=== PATIENT | male | born 1965 | race Caucasian/White ===

== ENCOUNTER 2018-09-09 09:17 | Day surgery (SDC) | payer OTHER ==
--- NOTE | 2018-09-09 07:41 | HP ---
DATE OF SURGERY: 09/09/2018 HISTORY OF PRESENT ILLNESS: A 53 year-old with no prior colonoscopy, no bloody stools, no change in bowel movements. Family history of bladder, prostate and rectal area cancer. He is in need of screening colonoscopy. PAST MEDICAL HISTORY: Hypertension. He has some aches and pains. PAST SURGICAL HISTORY: He denied any prior abdominal surgeries. MEDICATIONS: Gabapentin, Baclofen, hydrocodone, amlodipine, diclofenac, metoprolol, losartan. ALLERGIES: PENICILLIN. FAMILY HISTORY: Heart disease and cancer. SOCIAL HISTORY: No smoking or alcohol abuse. REVIEW OF SYSTEMS: Twelve systems reviewed. No chest pain or palpitations other systems negative or noncontributory as above and per preadmission questionnaire. PHYSICAL EXAMINATION: GENERAL: No acute distress. HEENT: Sclerae nonicteric. NECK: No JVD. CHEST: Clear to auscultation. CVS: Regular rate and rhythm. ABDOMEN: Soft. No peritoneal signs. EXTREMITIES: No significant edema. NEURO: Alert, oriented, moving extremities symmetrically. No gross motor deficits noted. IMPRESSION: No prior colonoscopy, history of some different types of cancer in the family. I feel he would benefit from screening colonoscopy. He was shown the risk sheet and explained the procedure detail but not limited to bleeding or infection, risk of bowel injury or perforation possibly requiring open procedure, risk of missed or nondiagnosis or incomplete exam possibly requiring barium enema, other studies or procedures, general risk of sedation or bowel prep, postoperative risk of nausea or cramping but not limited to. He understands and agrees to the planned procedure and will proceed with outpatient screening colonoscopy under MAC anesthesia.
[2018-09-09] MEDS ORDERED: DIPRIVAN 200 MG/20 ML IV ONE (09:18)
[2018-09-09] MEDS ORDERED: Ketamine HCl 50 MG/ML IV ONE (09:18)
[2018-09-09] MEDS ORDERED: Lactated Ringers 1,000 ML IV ONE ×2 (10:05→12:26)
[2018-09-09] MEDS ORDERED: Lactated Ringers 1,000 ML IV SCH (10:30)
[2018-09-09 14:07] VITALS: PULSE 58; O2SAT 100
[2018-09-09 14:08] VITALS: BP 151/73
--- NOTE | 2018-09-10 07:42 | OP ---
SURGERY DATE/TIME: 09/09/2018 1120 PREOPERATIVE DIAGNOSIS: Need for screening colonoscopy. POSTOPERATIVE DIAGNOSES: 1) Mild diverticulosis. 2) Small internal and external hemorrhoids. 3) Somewhat limited prep (fair amount of liquidy semi-solid stool limiting exam). Prep overall adequate but limited. PROCEDURES: 1) Colonoscopy to terminal ileum. 2) Retrograde ileoscopy. SURGEON: Dr. Catarino Calderon. ANESTHESIA: MAC, ESTIMATED BLOOD LOSS: Minimal. INDICATIONS: As noted above. Risks and benefits explained in detail but not limited to and consent obtained. DESCRIPTION OF PROCEDURE AND FINDINGS: The patient is taken to the operating room. MAC anesthesia introduced. After official time out and no disagreement with planned procedure, digital rectal exam did not reveal any rectal masses. He did have some small internal and external hemorrhoids. Video colonoscope carefully inserted. He had some liquidy semi-solid, a few solid chunks in the colon but the scope slowly and carefully navigated through the sigmoid, descending, transverse, ascending colon. With external pressure it was able to be passed around to the cecum. Appendiceal orifice well visualized. Pictures taken. The scope was able to be passed up the terminal ileum. Retrograde ileoscopy performed which was grossly unremarkable. The scope slowly carefully withdrawn. There were no signs of any large polyps, masses or obstructing lesions. The liquidy semi-solid stool irrigated and suctioned as well as possible just slightly limiting exam for small lesions. I do not feel there is any large lesions that were missed at this part of the prep but potential for very small lesions may not be easily seen given his prep quality. The scope slowly and carefully withdrawn. He had some mild diverticulosis in the left colon, had some small internal and external hemorrhoids. There were no signs of any large polyps, masses or obstructing lesions. Given his prep quality I feel he would ultimately benefit from follow up colonoscopy no later than five years unless he develops symptoms sooner consider sooner.
== END 2018-09-09 12:45 | disposition home or self-care (01) ==
LOC: SDC 09:17
PROVIDERS: ATTEND Surgery
DX: Z12.11 Encounter for screening for malignant neoplasm of colon (principal); K57.90 Diverticulosis of intestine, part unspecified, without perforation or abscess without bleeding; K64.4 Residual hemorrhoidal skin tags; K64.8 Other hemorrhoids; I10 Essential (primary) hypertension; Z80.52 Family history of malignant neoplasm of bladder; Z80.42 Family history of malignant neoplasm of prostate; Z80.0 Family history of malignant neoplasm of digestive organs; Z79.899 Other long term (current) drug therapy
CPT/HCPCS: J2704

== ENCOUNTER 2018-10-09 11:05 | Day surgery (SDC) | payer OTHER ==
[2018-10-09] MEDS ORDERED: Marcaine 0.5% SDV 10 ML IJ ONE (11:06)
[2018-10-09] MEDS ORDERED: Ketamine HCl 50 MG/ML IJ ONE (11:06)
[2018-10-09] MEDS ORDERED: Depo-Medrol 40 MG/ML IM ONE (11:06)
[2018-10-09] MEDS ORDERED: DIPRIVAN 200 MG/20 ML IV ONE (11:06)
[2018-10-09] MEDS ORDERED: Lactated Ringers 1,000 ML IV ONE (12:05)
--- NOTE | 2018-10-09 14:43 | XRAY ---
Indication: Left hip/left trochanter bursa injection. Intraoperative fluoroscopy was provided for 19 seconds. 2 digital spot images submitted for interpretation demonstrates needle tips projecting just lateral to the femur neck and greater trochanter. Small amount of contrast injected for needle tip placement. Correlate with intraoperative findings/report.
--- NOTE | 2018-10-09 15:19 | XRAY ---
19 seconds fluoroscopy time in surgery for left hip imjection.
== END 2018-10-09 13:33 | disposition home or self-care (01) ==
LOC: SDC-PAIN 11:05
PROVIDERS: ATTEND Psychiatry & Neurology Pain Medicine
DX: M70.62 Trochanteric bursitis, left hip (principal); M46.1 Sacroiliitis, not elsewhere classified; Z79.899 Other long term (current) drug therapy
CPT/HCPCS: 20610; 73501; 77002; J1030; J2704; Q9966

== ENCOUNTER 2019-10-15 11:44 | Day surgery (SDC) | payer OTHER ==
[2019-10-15] MEDS ORDERED: Marcaine 0.5% SDV 10 ML IJ ONE (11:45)
[2019-10-15] MEDS ORDERED: Depo-Medrol 40 MG/ML IM ONE (11:45)
[2019-10-15] MEDS ORDERED: DIPRIVAN 200 MG/20 ML IV ONE (13:00)
[2019-10-15] MEDS ORDERED: Ketamine HCl 50 MG/ML ONE (13:00)
--- NOTE | 2019-10-15 14:15 | XRAY ---
Indication: Left intra-articular and bursa injection. Intraoperative fluoroscopy was provided for 34 seconds. 2 digital spot images submitted for interpretation demonstrates needle tip projecting over the left femur neck. Second needle tip projects just lateral to the greater trochanter. Small amount of contrast injected for both needle tip placement. Correlate with intraoperative findings/report.
--- NOTE | 2019-10-15 14:31 | XRAY ---
34 seconds fluoroscopy time in surgery for left intra-articular and left bursa hip injections.
[2019-10-15] MEDS ORDERED: Lactated Ringers 1,000 ML IV ONE (14:53)
== END 2019-10-15 13:27 | disposition home or self-care (01) ==
LOC: SDC-PAIN 11:44
PROVIDERS: ATTEND Psychiatry & Neurology Pain Medicine
DX: M16.12 Unilateral primary osteoarthritis, left hip (principal); M70.62 Trochanteric bursitis, left hip; I10 Essential (primary) hypertension; Z79.899 Other long term (current) drug therapy
CPT/HCPCS: 20610; 73502; 77002; J1030; J2704; Q9966